=== PATIENT | female | born 1940 | race Two or more races ===

== ENCOUNTER 2020-04-11 09:17 | Outpatient (CLI) | payer OTHER ==
[~2020-04-11] VITALS: Ht 157.5 cm; Wt 58.1 kg
== END 2020-04-11 14:20 | disposition home or self-care (01) ==
LOC: OFIC 805 09:17
PROVIDERS: ATTEND Otolaryngology
DX: K14.8 Other diseases of tongue (principal)

== ENCOUNTER 2020-04-25 09:01 | Outpatient (CLI) | payer OTHER | END 2020-04-25 09:19 | disposition home or self-care (01) | LOC: OFIC 805 09:01 | PROVIDERS: ATTEND Otolaryngology | DX: K14.8 Other diseases of tongue (principal); L30.8 Other specified dermatitis ==